=== PATIENT | male | born 1960 | race Caucasian/White ===

== ENCOUNTER 2020-04-19 08:00 | Outpatient (REF) | payer BC, SELFPAY ==
[2020-04-19 11:48] LABS: Alanine Aminotransferase 23 U/L (0-40); Albumin Level 4.3 g/dL (3.5-5.0); Alkaline Phosphatase 60 U/L (39-117); Anion Gap 9 (12-20); Aspartate Amino Transferase 24 U/L (5-37); Bilirubin Total 0.9 mg/dL (0.0-1.0); Blood Urea Nitrogen 12 mg/dL (9-16); Calcium 8.9 mg/dL (8.4-10.2); Carbon Dioxide 31 mmol/L (22-29); Chloride 100 mmol/L (96-108); Cholesterol 160 mg/dL; Estimated Glomerular Filt Rate > 60; Glucose Fasting 90 mg/dL (60-99); HDL Cholesterol 48 mg/dL; LDL Cholesterol Calculated 104 mg/dl; Potassium 3.8 mmol/l (3.3-5.1); Sodium 136 mmol/L (135-145); Total Protein 7.4 g/dL (6.5-8.0); Triglycerides 41 mg/dL
[2020-04-19 12:06] LABS: TSH reflex Free T4 2.86 mIU/mL (0.32-4.0)
== END 2020-04-19 08:01 | disposition home or self-care (01) ==
LOC: HO.HMGCLDS 08:00
PROVIDERS: PCP Nurse Practitioner Family; Visit Provider Nurse Practitioner Family
DX: Z00.00 Encounter for general adult medical examination without abnormal findings (principal); Z12.5 Encounter for screening for malignant neoplasm of prostate
CPT/HCPCS: 80053; 80061; 84153; 84443

== ENCOUNTER 2020-08-15 14:17 | Outpatient (REF) | payer BC, SELFPAY | END 2020-08-15 14:18 | disposition home or self-care (01) | LOC: HO.HMGCLDS 14:17 | PROVIDERS: Visit Provider Internal Medicine | DX: Z20.822 Contact with and (suspected) exposure to COVID-19 (principal) | CPT/HCPCS: 36415; C9803; U0003; U0005 ==